=== PATIENT | female | born 1945 | race Caucasian/White ===

== ENCOUNTER 2017-08-24 19:44 | Emergency (ER) | payer MEDICARE ==
[2017-08-24 23:30] VITALS: BP 138/93
--- NOTE | 2017-08-24 23:47 | ED ---
Dwayne Perry Rebecca, scribed for Hemant Coats MD on 08/24/17 at 2304 . GI/ HPI - HPI Summary HPI Summary: Pt is a 72 y/o F who presents to ED c/o difficulty urinating and a lump in the vaginal area. Pt first noticed lump tonight while showering and described it as "an egg shape on the left side of my labia." Difficulty urinating has improved upon arriving to the ED. Notes mild dysuria and suprapubic cramping described as mild, ranked 3/10. PSHx hysterectomy "many years ago." Cannot remember when her last [employer] appointment was. - History of Current Complaint Chief Complaint: EDOBProblems Time Seen by Provider: 08/24/17 22:55 Stated Complaint: OB ISSUE Hx Obtained From: Patient Onset/Duration: Started Hours Ago, Still Present Current Severity: Mild Pain Intensity: 3 Location of Pain: Suprapubic Pain Characteristics: Cramping Associated Signs and Symptoms: Positive: Dysuria - mlid, Other: - Difficulty urinating - Allergy/Home Medications Allergies/Adverse Reactions: Allergies Allergy/AdvReac Type Severity Reaction Status Date / Time clarithromycin [From Biaxin] Allergy Shortness Verified 08/24/17 20:00 of Breath ibuprofen [From Motrin] Allergy Unknown Verified 08/24/17 20:00 Reaction Details latex Allergy Rash Verified 08/24/17 20:00 scallops Allergy Swelling Verified 08/24/17 20:00 Of Face,Lips,& Throat tramadol Allergy Pain Verified 08/24/17 20:00 PMH/Surg Hx/FS Hx/Imm Hx Endocrine/Hematology History: Reports: Hx Anemia - WITH Denies: Hx Diabetes, Hx Thyroid Disease Cardiovascular History: Reports: Hx Angina - HX MA, ON IMDUR, HELPS WITH CHEST PAIN, Hx Hypertension - ON MEDICATION Denies: Hx Pacemaker/ICD, Other Cardiovascular Problems/Disorders Respiratory History: Reports: Hx Asthma - INHALER Denies: Hx Chronic Obstructive Pulmonary Disease (COPD) GI History: Reports: Hx Gastroesophageal Reflux Disease, Hx Hiatal Hernia, Hx Ulcer - IN THE PAST, Other GI Disorders - CHOLANGELIS COLITIS History: Denies: Hx Dialysis, Hx Renal Disease, Other Problems/Disorders Musculoskeletal History: Reports: Hx Arthritis - HANDS, OMER HIPS, Hx Bursitis - RIGHT HIP, Hx Tendonitis - RIGHT WRIST, SURGICALLY REPAIRED Denies: Hx Osteoporosis Sensory History: Reports: Hx Cataracts - BEGINNING BOTH EYES, Hx Contacts or Glasses - GLASSES Denies: Hx Hearing Aid Opthamlomology History: Reports: Hx Cataracts - BEGINNING BOTH EYES, Hx Contacts or Glasses - GLASSES Neurological History: Reports: Hx Migraine - OCCULAR MIGRAINES Q 2 MONTHS Psychiatric History: Denies: Hx Panic Disorder - Cancer History Cancer Type, Location and Year: BREAST CA Hx Radiation Therapy: Yes - Surgical History Surgery Procedure, Year, and Place: [id number]. carpel tunnel bilat hands 2004. left ankle surgery - removal of extra bones. t&A at 16 years old. APPENDECTOMY 1971. PARTIAL AMPUTATION OF LEFT LITTLE FINGER-1968. GALLBLADDER. 1993-RIGHT KNEE - SYNOVECTOMY. RIGHT LUMPECTOMY. RIGHT INDEX FINGER. RIGHT WRIST VEIN RELEASE Hx Anesthesia Reactions: No Infectious Disease History: No Infectious Disease History: Denies: Hx Hepatitis, Hx Human Immunodeficiency Virus (HIV), Traveled Outside the [place] in Last 30 Days - Family History Known Family History: Positive: Cardiac Disease, Hypertension - Social History Alcohol Use: None Substance Use Type: Reports: None Smoking Status (MU): Never Smoked Tobacco Have You Smoked in the Last Year: No Review of Systems Positive: Abdominal Pain - Suprapubic cramping Positive: dysuria - mild, other - Difficulty urinating; vaginal lump All Other Systems Reviewed And Are Negative: Yes Physical Exam - Summary Physical Exam Summary: VITAL SIGNS: Reviewed. GENERAL: ~Patient is a well-developed and nourished female who is lying comfortable in the stretcher. Patient is not in any acute respiratory distress. HEAD AND FACE: No signs of trauma. No ecchymosis, hematomas or skull depressions. No sinus tenderness. EYES: PERRLA, EOMI x 2, No injected conjunctiva, no nystagmus. EARS: Hearing grossly intact. Ear canals and tympanic membranes are within normal limits. MOUTH: Oropharynx within normal limits. NECK: Supple, trachea is midline, no adenopathy, no JVD, no carotid bruit, no c- spine tenderness, neck with full ROM. CHEST: Symmetric, no tenderness at palpation LUNGS: Clear to auscultation bilaterally. No wheezing or crackles. CVS: Regular rate and rhythm, S1 and S2 present, no murmurs or gallops appreciated. ABDOMEN: Soft, non-tender. No signs of distention. No rebound no guarding, and no masses palpated. Bowel sounds are normal. EXTREMITIES: FROM in all major joints, no edema, no cyanosis or clubbing. NEURO: Alert and oriented x 3. No acute neurological deficits. Speech is normal and follows commands. SKIN: Dry and warm Pelvic: Cytocele present, worse when she bears down Triage Information Reviewed: Yes Vital Signs On Initial Exam: Initial Vitals Temp Pulse Resp BP Pulse Ox 98.2 F 77 20 146/107 95 08/24/17 19:54 08/24/17 19:54 08/24/17 19:54 08/24/17 19:54 08/24/17 19:54 Vital Signs Reviewed: Yes Diagnostics - Vital Signs Vital Signs Temp Pulse Resp BP Pulse Ox 08/24/17 19:54 98.2 F 77 20 146/107 95 - Laboratory Lab Statement: Any lab studies that have been ordered have been reviewed, and results considered in the medical decision making process. GIGU Course/Dx - Course Assessment/Plan: Pt is a 72 y/o F who presents to ED c/o difficulty urinating and a lump in the vaginal area, first noticed tonight while showering, described as "an egg shape on the left side of my labia." Difficulty urinating has improved upon arriving to the ED. Notes mild dysuria and suprapubic cramping described as mild, ranked 3/10. PSHx hysterectomy "many years ago." Cannot remember when her last [employer] appointment was. Physical examination reveals a cytocele that worsens when she bears down. Pt will be D/C to home with Dx of cytocele with follow up with CERTIFIED MEDICATION TECHNICIAN. Allergies noted. - Diagnoses Provider Diagnoses: Cystocele Discharge - Sign-Out/Discharge Documenting (check all that apply): Discharge/Admit/Transfer - Discharge - Discharge Plan Condition: Stable Disposition: HOME Patient Education Materials: Cystocele (ED) Referrals: Merrill Griffin MD [Medical Doctor] - As Soon As Possible () Additional Instructions: Follow up with CERTIFIED MEDICATION TECHNICIAN as soon as possible. RETURN TO EMERGENCY DEPARTMENT FOR ANY NEW OR WORSENING SYMPTOMS. The documentation as recorded by the Dwayne olea Rebecca accurately reflects the service I personally performed and the decisions made by , Hemant Coats MD.
== END 2017-08-24 23:29 | disposition home or self-care (01) ==
LOC: ED 19:44
DX: N81.10 Cystocele, unspecified (principal); Z88.3 Allergy status to other anti-infective agents; Z88.5 Allergy status to narcotic agent; Z88.6 Allergy status to analgesic agent
CPT/HCPCS: 99282